=== PATIENT | female | born 1980 | race Two or more races ===

== ENCOUNTER 2018-05-12 19:33 | Emergency (ER) | payer MEDICAID, OTHER ==
[~2018-05-12] VITALS: Ht 167.6 cm; Wt 64.9 kg
[~2018-05-12 19:33] MED LIST: AMITR PO; CARI-277 PO; CYMBALTA PO; NOR10T; PREG25CA PO
[2018-05-12 20:08] VITALS: BP 101/68
[2018-05-12 20:41] LABS: Urine Bacteria NONE SEEN /hpf (None Seen); Urine Blood Negative /uL (Negative); Urine Specific Gravity 1.006 (1.001-1.035); Urine WBC <1 /hpf (0 - 5)
[2018-05-12] MEDS ORDERED: TRIAMCINOLONE 40MG/ML 1ML VIAL IM ONE (22:15)
[2018-05-12] MEDS ORDERED: LIDOCAINE HCL 2 % INJ 2ML MPF NEB ONE (22:15)
[2018-05-12] MEDS ORDERED: LIDOCAINE 2% (LOCAL ANESTH.) PF 5ml SDV ONE (22:26)
== END 2018-05-12 22:55 | disposition home or self-care (01) ==
LOC: ER 19:33
DX: M54.16 Radiculopathy, lumbar region (principal); K59.00 Constipation, unspecified; M19.90 Unspecified osteoarthritis, unspecified site; I10 Essential (primary) hypertension; Z79.899 Other long term (current) drug therapy
CPT/HCPCS: 20552; 72131; 81001; 81025; 99285; J3301; J2001

== ENCOUNTER 2019-01-19 10:05 | Emergency (ER) | payer MEDICAID, OTHER ==
[~2019-01-19] VITALS: Ht 167.6 cm; Wt 65.8 kg
[2019-01-19 10:17] VITALS: BP 121/87
[2019-01-19] MEDS ORDERED: KETOROLAC TROMETH 60MG/2ML VIAL IM ONE (11:00)
== END 2019-01-19 11:47 | disposition home or self-care (01) ==
LOC: ER 10:05
DX: S39.012A Strain of muscle, fascia and tendon of lower back, initial encounter (principal); G89.29 Other chronic pain; I10 Essential (primary) hypertension; M19.90 Unspecified osteoarthritis, unspecified site; Z88.8 Allergy status to other drugs, medicaments and biological substances; X50.1XXA Overexertion from prolonged static or awkward postures, initial encounter; Y93.89 Activity, other specified; Y99.8 Other external cause status; Y92.89 Other specified places as the place of occurrence of the external cause
CPT/HCPCS: 96372; 99283; J1885

== ENCOUNTER → 2020-02-16 | Emergency (ER) | payer MEDICAID ==
[~2020-02-16] VITALS: Ht 165.1 cm; Wt 74.8 kg
[2020-02-16 19:39] LABS: Basophils # (auto) 0.1 10 ^3/uL (0-0.2); Eosinophils # (auto) 0.1 10 ^3/uL (0-0.8); Eosinophils % (auto) 1.7 % (0.0-7.0); Hemoglobin 12.8 g/dL (12.2-16.2); Lymphocytes % (auto) 23.1 % (10.0-50.0); Mean Corpuscular Hemoglobin 29.8 pg (28.0-32.0); Mean Corpuscular Hgb Conc. 34.5 g/dL (32.0-36.0); Mean Corpuscular Volume 86.3 fL (80.0-100.0); Monocytes # (auto) 0.8 10 ^3/uL (0-1.3); Monocytes % (auto) 8.7 % (0.0-12.0); Neutrophils # (auto) 5.8 10 ^3/uL (1.6-8.6); Neutrophils % (auto) 65.5 % (37.0-80.0); Platelet Count (auto) 266 10^3/uL (140-450); Red Blood Cells 4.28 10^6/uL (4.0-5.20); Red Cell Distribution Width 13.8 % (11.8-14.3); White Blood Cell 8.9 10^3/uL (4.4-10.8)
[2020-02-16 19:52] LABS: Albumin 3.8 g/dL (3.4-5.0); Calcium 8.5 mg/dL (8.5-10.1); Potassium 3.3 mmol/L (3.5-5.1)
[2020-02-16 19:56] LABS: BUN/Creatinine Ratio 20.7; Bilirubin, Total 0.6 mg/dL (0.2-1.0); Total Protein 7.5 g/dL (6.4-8.2)
[2020-02-16 21:01] LABS: Urine Bacteria FEW /hpf (None Seen); Urine Blood 3+ /uL (Negative); Urine Specific Gravity 1.003 (1.001-1.035); Urine WBC 1 /hpf (0 - 5)
[2020-02-16 22:15] VITALS: BP 124/73
== END | disposition home or self-care (01) ==
LOC: ER 17:11
DX: O20.0 Threatened abortion (principal); O16.1 Unspecified maternal hypertension, first trimester; Z79.899 Other long term (current) drug therapy; Z88.8 Allergy status to other drugs, medicaments and biological substances; Z3A.10 10 weeks gestation of pregnancy
CPT/HCPCS: 36415; 76801; 80053; 81001; 84702; 85025

== ENCOUNTER 2022-09-19 17:29 | Emergency (ER) | payer MEDICAID ==
[~2022-09-19] VITALS: Ht 165.1 cm; Wt 81.0 kg
[~2022-09-19 17:29] MED LIST changes: +AMIT1TAB PO; -AMITR PO
[2022-09-19 17:38] VITALS: BP 118/78
[2022-09-19] MEDS ORDERED: KETOROLAC TROMETH 60MG/2ML VIAL IM ONE (20:30)
== END 2022-09-19 20:28 | disposition home or self-care (01) ==
LOC: ER 17:29
DX: S16.1XXA Strain of muscle, fascia and tendon at neck level, initial encounter (principal); S39.012A Strain of muscle, fascia and tendon of lower back, initial encounter; I10 Essential (primary) hypertension; Z88.6 Allergy status to analgesic agent; Y04.2XXA Assault by strike against or bumped into by another person, initial encounter; Y93.89 Activity, other specified; Y92.89 Other specified places as the place of occurrence of the external cause; Y99.8 Other external cause status
CPT/HCPCS: 72100; 72125; 96372; 99284; J1885